=== PATIENT | male | born 1970 | race Caucasian/White ===

== ENCOUNTER 2017-06-19 12:30 | Emergency (ER) | payer BC ==
[2017-06-19 12:36] VITALS: BP 159/103; PULSE 89; TEMP 98.9; BMI 29.8
--- NOTE | 2017-06-19 12:49 | PDOC ---
History of Present Illness - General Chief Complaint: Lightheaded Stated Complaint: DIZZINESS Time Seen by Provider: 06/19/17 12:35 - History of Present Illness Initial Comments: 47 year old male with PMH of migraines presenting with "dizziness" and chest pains for the past two weeks. States that he has been dizziness without head trauma or inciting event. States that he feels as if he is in a fish bowl most of the time and occasionally has sensation where the room appears to be spinning that makes him feel like he is "very drunk". It is worsened when he sits up from standing or bends over to tie his shoe laces. Also states he has a slight right sided headache that he feels is worse in the morning. Relieving factors include rest and laying down. He denies fevers, chills, nausea, vomiting , diarrhea, depressed appetite, SOB, or other symptoms. 06/19/17 13:08 Past History - Past Medical History Allergies/Adverse Reactions: Allergies Allergy/AdvReac Type Severity Reaction Status Date / Time No Known Allergies Allergy Verified 06/19/17 12:31 Home Medications: Ambulatory Orders Meclizine HCl [Antivert -] 12.5 mg PO TID PRN #21 tablet 06/19/17 Sumatriptan Succinate [Imitrex Injection -] 6 mg SQ ASDIR 06/19/17 COPD: No Other medical history: MIGRAINE HEADACHES - Suicide/Smoking/Psychosocial Hx Smoking History: Never smoked Hx Alcohol Use: No Drug/Substance Use Hx: No Review of Systems - Review of Systems Constitutional: No: Chills, Diaphoresis, Fever HEENTM: No: Blurred Vision, Recent change in vision Respiratory: No: Cough, Orthopnea, Shortness of Breath, Wheezing Cardiac (ROS): Yes: Chest Tightness (Occasional chest pressure). No: Chest Pain , Irregular Heart Rate ABD/GI: No: Constipated, Diarrhea, Nausea, Vomiting : No: Burning, Dysuria, Discharge Musculoskeletal: No: Back Pain, Joint Pain, Muscle Pain, Muscle Weakness Integumentary: No: Bruising, Change in Color, Flushing, Lesions Neurological: Yes: Headache. No: Numbness, Paresthesia Psychiatric: No: Anxiety, Depression *Physical Exam - Vital Signs Last Vital Signs Temp Pulse Resp BP Pulse Ox 98.9 F 89 18 159/103 100 06/19/17 12:30 06/19/17 12:30 06/19/17 12:30 06/19/17 12:30 06/19/17 12:30 - Physical Exam General Appearance: Yes: Nourished, Appropriately Dressed. No: Apparent Distress HEENT: positive: EOMI, MARIANNE, Normal ENT Inspection, Normal Voice Neck: positive: Trachea midline, Normal Thyroid, Supple. negative: Tender, Rigid Respiratory/Chest: positive: Lungs Clear, Normal Breath Sounds. negative: Chest Tender, Respiratory Distress, Accessory Muscle Use Cardiovascular: positive: Regular Rhythm, Regular Rate Gastrointestinal/Abdominal: positive: Normal Bowel Sounds, Flat, Soft. negative : Tender Musculoskeletal: positive: Normal Inspection. negative: CVA Tenderness Extremity: positive: Normal Capillary Refill, Normal Inspection, Normal Range of Motion. negative: Tender Integumentary: positive: Normal Color, Dry, Warm Neurologic: positive: web assistant II-XII NML intact, Fully Oriented, Alert, Normal Mood/ Affect, Normal Response, Motor Strength 5/5, Respond to painful stimul, Responsive, Numbness, Finger to Nose, Other (Slight difficulty with heel-toe gait and slight backward lean with proprioception test.). negative: Abnormal Cranial NS, EOM Palsy, Facial Droop, Confused, Disoriented, Depressed Affect Deep Tendon Reflexes: Knee (L): 2+, Knee (R): 2+, Tricep (L): 2+, Tricep (R): 2+ ED Treatment Course - LABORATORY CBC & Chemistry Diagram: 06/19/17 13:50 06/19/17 13:50 Medical Decision Making - Medical Decision Making 47 year old male with history of migraines presenting with two weeks of dizziness and feeling as if he is "in a fish bowl". Denies any GI symptoms but does admit to headache that is worse in the morning but not as sever as his migraines. Also complaining of some occasional chest tightness. Overall story likely vertigo but will get EKG and screening troponin to rule out cardiac pathology. Additionally, his headache is concerning for intracranial mass. Will get CT head, troponins, and basic labs (could possibly be explained by anemia or electrolyte disturbance). 06/19/17 15:20 CT head, labs , and EKG WNL. HINTS test likely engative but possibly significant for peripheral vertigo (head til positive for horizontal nystagmus on right head tilt. Will discharge with meclizine and neurology follow up. BP still elevated on discharge 153/108 so will have him follow up with his PCP as well to have better BP control. 06/19/17 16:09 *DC/Admit/Observation/Transfer Diagnosis at time of Disposition: Vertigo - Discharge Dispostion Disposition: HOME Condition at time of disposition: Improved Admit: No - Prescriptions Prescriptions: Meclizine HCl [Antivert -] 12.5 mg PO TID PRN #21 tablet PRN Reason: Vertigo - Referrals Referrals: Joby Panda MD [Primary Care Provider] - Cody Watson MD [Staff Physician] - - Patient Instructions Printed Discharge Instructions: DI for Vertigo Additional Instructions: You likely have vertigo. You can take the meclizine up to three times per day as needed for your vertigo. Pelase follow up with Dr. Watson for further workup of your vertigo. Please have your BP rechecked by your primary care physician as it was 150s/100s here on two separate readings. Please return to the Ed if you have new or worsening symptoms or if you experience lightheadedness, passing out, or headache much worse than before. - Post Discharge Activity
[2017-06-19] MEDS ORDERED: MECLIZINE HCL 12.5 MG TABLET PO ONE (13:20)
[2017-06-19] MEDS ORDERED: MECLIZINE HCL 12.5 MG TABLET ONE ×2 (13:24→13:35)
--- NOTE | 2017-06-19 13:26 | PDOC ---
Attending Attestation - Resident Resident Name: GilmarJoellen - ED Attending Attestation I have performed the following: I have examined & evaluated the patient, The case was reviewed & discussed with the resident, I agree w/resident's findings & plan, Exceptions are as noted - HPI HPI: 06/19/17 13:23 47y M hx of migraines presents with dizziness and chest tightness over 2 weeks. Pt states he woke up in the morning with 2 weeks ago with some dizziness. The patient states that occasionally it will be mild, like he is on a boat, other times, he feels like extreme room spining dizziness. He endores a mlid headache. denies any associated nausea vomiting, dysarthria, double vision. He does state that he has had increasing blurry vision in the past few months and has been meaning to go see his optomitrist. The last time he went to see a an surgeon chief 2 or so years ago. Pt does endorse intermitent chest tightness, that lasts for seconds at a time, perhaps 3 episdoes over the past 2 weeks, they are non exertional, not associated with n/v, diaphoresis, sob, he gets them at random times like when he is driving. Pt states he went to his dentist who saw his high blood pressure and sent him to the ED. He states he went to the dentist today who noted his elevated BP and sent him to the ED for evauation. On exam the pt notes he feels like he is floating on a boat when he i sstanding , seems to improve significantly when he is at rest. his neuro exam is unremarkable: NEURO: Mental status: The patient is oriented x3. Cranial nerves: Cranial nerves II through XII are intact Motor: The upper extremities are 5 over 5 in all muscle groups. The lower extremities are 5 over 5 in all muscle groups. Negative pronator drift Sensation: Sensation is intact to light touch throughout. romberg negative Cerebellar: [id number]-lzffio-benx is normal in both upper extremities. rapid alternating movements are normal. Gait: Normal. Heel and toe walking are normal. HiNTs exam noted for +Head impulse test, +horizontal unidirectional nystagmus, neg test of skew suspec peripheral cause will have pt fu with neurology return precautions were discussed I discussed the physical exam findings, ancillary test results and final diagnoses with the patient. I answered all of the patient's questions. The patient was satisfied with the care received and felt comfortable with the discharge plan and treatment plan. The patient will call their primary care physician within 24 hours to arrange follow-up and will return to the Emergency Department with any new, persistent or worsening symptoms. Heart Score/ECG Review - ECG Impressions Comment:: 06/19/17 13:33 Twelve-lead EKG was performed and reviewed by me. There is normal sinus rhythm with a normal rate. Rate of 73 The axis is normal. The intervals are normal. There is normal R wave progression Nonsepcific ST abnormality
[2017-06-19] MEDS ORDERED: MECLIZINE HCL 12.5 MG TABLET PO STA (13:33)
[2017-06-19 14:27] LABS: BASO % 0.7 % (0-2.0); EOS % 2.3 % (0-4.5); HEMATOCRIT 41.9 % (35.4-49); HEMOGLOBIN 14.6 GM/dl (11.7-16.9); LYMPH % 28.6 % (8-40); MCH 29.8 pg (25.7-33.7); MCHC 34.7 g/dl (32.0-35.9); MEAN CELL VOLUME 85.8 fl (80-96); MEAN PLT VOLUME 7.9 fl (7.5-11.1); MONO % 5.5 % (3.8-10.2); NEUT % 62.9 % (42.8-82.8); PLATELET COUNT 339 K/MM3 (134-434); RBC 4.89 M/mm3 (4.00-5.60); RDW 11.8 % (11.9-15.9); WHITE BLOOD COUNT 5.7 K/mm3 (4.0-10.8)
[2017-06-19 14:34] LABS: ALBUMIN 3.9 g/dl (3.5-5.0); ALK PHOS 65 U/L (32-92); ANION GAP 5 (8-16); BILIRUBIN,TOTAL 0.7 mg/dl (0.2-1.0); BLOOD UREA NITROGEN 11 mg/dl (7-18); CALCIUM 8.7 mg/dl (8.4-10.2); CHLORIDE 103 mmol/L (98-107); CO2 27 mmol/L (22-28); CREATININE 0.9 mg/dl (0.6-1.3); GLUCOSE,RANDOM 103 mg/dl (74-106); POTASSIUM 3.8 mmol/L (3.5-5.1); SGOT/AST 24 U/L (10-42); SGPT/ALT 30 U/L (10-40); SODIUM 135 mmol/L (136-145); TOT PROT 6.8 g/dl (6.4-8.3)
--- NOTE | 2017-06-19 17:31 | EKG ---
Test Reason : Blood Pressure : / mmHG Vent. Rate : 073 BPM Atrial Rate : 073 BPM P-R Int : 140 ms QRS Dur : 098 ms QT Int : 392 ms P-R-T Axes : 038 035 048 degrees QTc Int : 431 ms NORMAL SINUS RHYTHM NONSPECIFIC ST ABNORMALITY ABNORMAL ECG NO PREVIOUS ECGS AVAILABLE Confirmed by Rodolfo Bennett ([id number]) on 06/19/2017 5:31:03 PM Referred By: AR BOLIVAR Confirmed By:Rodolfo Bennett
== END 2017-06-19 17:06 | disposition home or self-care (01) ==
LOC: FER 12:30
DX: R42 Dizziness and giddiness (principal)
CPT/HCPCS: 36415; 70450-TC; 80053; 82550; 84484; 85025; 93005; 99283-25